=== PATIENT | female | born 1970 | race Caucasian/White ===

== ENCOUNTER 2017-08-08 06:25 | Day surgery (SDC) | payer MEDICAID ==
[2017-08-07 17:13] LABS: HEMATOCRIT 39.8 % (36.0-48.0); HEMOGLOBIN 13.7 g/dL (12-16); MCH 30.9 pg (26.0-34.0); MCHC 34.4 g/dL (31.0-37.0); MCV 89.8 fL (80.0-100.0); MEAN PLATELET VOLUME 11.5 fL (7.4-10.4); RBC 4.43 10x6/uL (4.00-5.40); RDW 13.1 % (11.5-14.5); WBC 8.2 10x3/uL (4.8-10.8)
[2017-08-07 17:31] LABS: CALC OSMOLALITY 286 mosm/kg (275-300); CALCIUM 9.1 mg/dL (8.5-10.1); CARBON DIOXIDE 27.4 mmol/L (21.0-32.0); CHLORIDE - SERUM 99 mmol/L (98-107); CREATININE - SERUM 0.8 mg/dL (0.6-1.3); GLUCOSE 289 mg/dL (74-106); SODIUM 138 mmol/L (136-145); UREA NITROGEN 13 mg/dL (7-18); eGFR NON AFRICAN AMERICAN 81 mL/min (90-120)
[2017-08-08 08:17] VITALS: BP 119/58; BMI 36.4
[2017-08-08] MEDS ORDERED: NAPROSYN500 MG PO (08:33)
[2017-08-08] MEDS ORDERED: LYRICA100 MG PO (08:33)
[2017-08-08] MEDS ORDERED: TEMAZEPAM30 MG PO ×2 (08:34→08:43)
[2017-08-08] MEDS ORDERED: ZOCOR10 MG PO (08:35)
[2017-08-08] MEDS ORDERED: AVAPRO150 MG PO ×2 (08:35→08:45)
[2017-08-08] MEDS ORDERED: ULTRAM50 MG PO (08:36)
[2017-08-08] MEDS ORDERED: GLIMEPIRIDE4 MG PO (08:37)
[2017-08-08] MEDS ORDERED: VALIUM5 MG PO (08:39)
[2017-08-08] MEDS ORDERED: HYDROCODON-ACE1 EAC7 PO (08:40)
[2017-08-08] MEDS ORDERED: CELEXA40 MG PO (08:40)
[2017-08-08] MEDS ORDERED: GLUCOPHAGE500 MG (08:42)
[2017-08-08] MEDS ORDERED: MOBIC7.5 MG PO (08:43)
[2017-08-08] MEDS ORDERED: LANTUS INSULIN10 ML (08:44)
--- NOTE | 2017-08-08 16:10 | NUR ---
PATIENT AMBULATES TO BATHROOM AND VOIDS LARGE AMOUNT IN TOILET WITHOUT DIFFICULTY. AMBULATES SLOWLY AND WITH DAUGHTER'S ASSISTANCE. PATIENT STATES THAT DAUGHTER LIVES WITH HER AND WILL BE PROVIDING 24 HOUR CARE. PATIENT RETURNS TO BEDSIDE AND SITS IN CHAIR. IV DC'D WITH TIP INTACT. PATIENT RATES PAIN AT 9 ON 0-10 SCALE TO LOW BACK
--- NOTE | 2017-08-08 16:25 | NUR ---
NORCO GIVEN PER EMAR, PATIENT CONTINUES TO COMPLAIN OF PAIN OF 9 ON 0-10 SCALE TO LOW BACK
--- NOTE | 2017-08-08 16:50 | NUR ---
PATIENT DRESSED IN PERSONAL CLOTHING. PATIENT RATES PAIN AT 6 ON 0-10 SCALE. PATIENT WANTS TO GO HOME. DAUGHTER STATES THAT SHE WILL BE PROVIDING 24 HOUR CARE UNTIL PATIENT RECOVERED. DISCHARGE INSTRUCTIONS REVIEWED WITH PATIENT AND DAUGHTER
--- NOTE | 2017-08-08 17:00 | NUR ---
PATIENT DISCHARGED HOME VIA WHEELCHAIR TO PRIVATE VEHICLE WITH DAUGHTER
--- NOTE | 2017-08-15 12:03 | OP ---
PATIENT NAME: VICKIE MORRISON MEDICAL RECORD: [id number] :66 LOCATION:[facility] ADMISSION DATE: SURGEON: MARCELA SAHNI MD DATE OF OPERATION: 08/08/2017 PREOPERATIVE DIAGNOSES: Disc herniation L5-S1, right with right L5-S1 foraminal stenosis and right S1 radiculopathy. POSTOPERATIVE DIAGNOSIS: Disc herniation L5-S1, right with caudal migration of disc fragment S1-S2 on the right. PROCEDURES: Lumbar laminotomy, medial facetectomy and foraminotomy at L5-S1, and S1-S2 on the right with discectomy L5-S1, right. DESCRIPTION AND TECHNIQUE: After induction of general endotracheal anesthesia, the patient was rolled prone on a Walter frame. Lumbar spine was prepped and draped in usual sterile fashion. Fluoroscopic x-ray and spinal needle localized the L5-S1 interspace on the right side. A stab incision was created with a #11 blade. A series of dilators was used to advance the METRx retractor to the L5-S1 interspace on the right side. Level was confirmed with fluoroscopic x-ray. A Perdo[employer] Bienvenido drill and microscope were used to perform a laminotomy, medial facetectomy and foraminotomy at L5-S1 on the right. Hypertrophied ligamentum flavum was removed with Cloward rongeurs. Following this, there was no disc herniation emanating from the right L5-S1 disc space. Disc material was removed from the disc space, as well as additional fragments from the canal. Fragments distended quite anteriorly within the canal and laminectomy was carried out at S1-S2 on the right to obtain all the disc fragments. Following this, the L5, S1 and S2 nerve roots decompressed well. Meticulous hemostasis was maintained throughout the wound. The wound was irrigated with copious of Ancef irrigant solution. The fascia was closed with 2-0 Vicryl suture, the subdermal layer was closed with 3-0 Vicryl suture, the fascia was closed with 2-0 Vicryl stitches, subdermal layer was closed with 3-0 Vicryl suture and the skin was closed with gustabo. A sterile dressing was applied in the wound. The patient was awakened in good condition and taken to recovery. All counts were reported as correct. Estimated blood loss was minimal. TRANSINT:[id number] Voice Confirmation ID: [id number] DOCUMENT ID: [id number] MARCELA SAHNI MD at 1203 CC: [id number] DICTATION DATE: 08/08/17 144 RESERVATION AGENT: 08/08/[address] [facility] 08/08/17 [facility] [address] [place] [address]
== END 2017-08-08 17:00 | disposition home or self-care (01) ==
LOC: D.OPS 06:25 → D.PAN 09:00 → D.OPS 09:00
PROVIDERS: Anesthesiology
DX: M51.17 Intervertebral disc disorders with radiculopathy, lumbosacral region (principal); M54.5 Low back pain; I10 Essential (primary) hypertension; E11.9 Type 2 diabetes mellitus without complications; I25.10 Atherosclerotic heart disease of native coronary artery without angina pectoris; E66.01 Morbid (severe) obesity due to excess calories; Z68.36 Body mass index [BMI] 36.0-36.9, adult; Z01.812 Encounter for preprocedural laboratory examination

== ENCOUNTER 2018-07-20 19:00 | Outpatient (CLI) | payer MEDICAID ==
[~2018-07-20 19:00] MED LIST: AVAPRO150 MG PO; CELEXA40 MG PO; GLIMEPIRIDE4 MG PO; GLUCOPHAGE500 MG; HYDROCODON-ACE1 EAC7 PO; LANTUS INSULIN10 ML; LYRICA100 MG PO; MOBIC7.5 MG PO; NAPROSYN500 MG PO; TEMAZEPAM30 MG PO; ULTRAM50 MG PO; VALIUM5 MG PO; ZOCOR10 MG PO
== END 2018-07-20 23:59 | disposition home or self-care (01) ==
LOC: D.MAMMO 19:00
DX: Z12.31 Encounter for screening mammogram for malignant neoplasm of breast (principal)

== ENCOUNTER 2018-08-09 19:00 | Outpatient (CLI) | payer MEDICAID | END 2018-08-09 23:59 | disposition home or self-care (01) | LOC: D.MAMMO 19:00 | DX: R92.8 Other abnormal and inconclusive findings on diagnostic imaging of breast (principal) ==

== ENCOUNTER → 2019-04-10 08:00 | Outpatient (CLI) | payer MEDICAID | END | disposition home or self-care (01) | LOC: D.MAMMO 02-27 09:30 | PROVIDERS: ATTEND Emergency Medicine | DX: R92.8 Other abnormal and inconclusive findings on diagnostic imaging of breast (principal) ==